=== PATIENT | male | born 1985 | race Native Hawaiian/Other Pacific Islander ===

== ENCOUNTER 2018-12-26 11:19 | Emergency (ER) | payer BC ==
[~2018-12-26] VITALS: Ht 193 cm; Wt 97.5 kg
[2018-12-26 12:00] LABS: PLATELET COUNT 301 K/uL (142-355)
[2018-12-26 12:09] LABS: POTASSIUM 3.6 mmol/L (3.6-5.2)
[2018-12-26 15:21] VITALS: BP 131/77; TEMP 98.2
== END 2018-12-26 15:25 | disposition other institution (70) ==
LOC: ED 11:19
PROVIDERS: Emergency Medicine
DX: R45.851 Suicidal ideations (principal)
CPT/HCPCS: 80053; 80307; 80320; 80329; 81000; 85027; 93005; 96372; 99285; J2060